=== PATIENT | female | born 1985 | race Caucasian/White ===

== ENCOUNTER → 2017-09-11 | Outpatient (CLI) | payer OTHER ==
[2017-09-11 11:38] LABS: BACTERIA (WET MOUNT) 3+ BACTERIA SEEN; EPITHELIALS (WET MOUNT) 4+ EPITHELIALS SEEN; T.VAGINALIS (WET MOUNT) COULD NOT PERFORM; WBCS (WET MOUNT) 1+ WBCS SEEN; YEAST (WET MOUNT) NO YEAST SEEN
== END ==
LOC: LAB 11:30
PROVIDERS: ATTEND Emergency Medicine
DX: N89.8 Other specified noninflammatory disorders of vagina (principal)
CPT/HCPCS: 87210

== ENCOUNTER 2019-10-08 15:55 | Emergency (ER) | payer OTHER ==
[2019-10-08] MEDS ORDERED: DIAZEPAM 5 MG TABLET PO ONE (16:05)
[2019-10-08] MEDS ORDERED: IBUPROFEN 600 MG TABLET PO ONE (16:05)
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
== END 2019-10-08 17:50 | disposition home or self-care (01) ==
LOC: ER 15:55
DX: S16.1XXA Strain of muscle, fascia and tendon at neck level, initial encounter (principal); M54.2 Cervicalgia; R20.0 Anesthesia of skin; V87.7XXA Person injured in collision between other specified motor vehicles (traffic), initial encounter; Z88.0 Allergy status to penicillin; Z88.2 Allergy status to sulfonamides; Z88.8 Allergy status to other drugs, medicaments and biological substances
CPT/HCPCS: 72125; 99283